=== PATIENT | female | born 1965 | race Caucasian/White ===

== ENCOUNTER 2019-01-03 06:17 | Emergency (ER) | payer BC ==
--- NOTE | 2019-01-03 07:14 | EDM.PDOC ---
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 This has caused anemia in the past and she is concerned about that. She is having some cramping but no fever, chills, no chance of . No significant dizziness or shortness of breath. Onset: Gradual Duration: Day(s): (Bleeding started 1 day ago) Associated Symptoms: Denies: Confusion, Chest Pain, Cough, Diaphoresis, Fever/ Chills, Headaches, Loss of Appetite, Nausea/Vomiting, Shortness of Breath Uterine Pain Score (Numeric/FACES): 5 - Related Data Allergies Allergy/AdvReac Type Severity Reaction Status Date / Time Sulfa (Sulfonamide Allergy Hives Verified 01/03/19 06:35 Antibiotics) Home Meds: Home Meds *Cq10 1 tab PO DAILY 01/03/19 [History] Cholecalciferol (Vitamin D3) [Vitamin D3] 3,000 units PO DAILY 01/03/19 [History ] Multivitamin with Iron [Multivitamins with Iron] 1 tab PO DAILY 01/03/19 [ History] Past Medical History HEENT History: Reports: Impaired Vision Cardiovascular History: Reports: High Cholesterol Gastrointestinal History: Reports: Colon Polyp, Other (See Below) Other Gastrointestinal History: GI tear from vomitting 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 History: Reports: Dysfunctional Uterine Bleeding, Fibroids Hematologic History: Reports: Anemia, Iron Deficiency - Infectious Disease History Infectious Disease History: Reports: Chicken Pox, Shingles - Past Surgical History GI Surgical History: Reports: Colonoscopy, EGD, Esophageal Dilatation, Polypectomy Social & Family History - Tobacco Use Smoking Status *Q: Never Smoker - Caffeine Use Caffeine Use: Reports: Coffee - Recreational Drug Use Recreational Drug Use: No ED ROS GENERAL - Review of Systems Review Of Systems: See Below Constitutional: Denies: Fever, Chills HEENT: Reports: No Symptoms Respiratory: Reports: No Symptoms Cardiovascular: Reports: No Symptoms. Denies: Palpitations GI/Abdominal: Reports: Abdominal Pain. Denies: Nausea, Vomiting : Denies: Dysuria, Flank Pain Skin: Reports: No Symptoms ED EXAM, GENERAL - Physical Exam Exam: See Below Exam Limited By: No Limitations General Appearance: Alert, No Apparent Distress Eye Exam: Bilateral Eye: Other (Well-hydrated, conjunctiva normal) Head: Atraumatic Respiratory/Chest: No Respiratory Distress Cardiovascular: Regular Rate, Rhythm GI/Abdominal: Soft, Other (some discomfort with palpation across the lower abdomen, no distention) Course - Vital Signs Last Recorded V/S: Last Vital Signs Temp 96.5 F 01/03/19 06:43 Pulse 86 01/03/19 06:43 Resp 18 01/03/19 06:43 BP 142/101 H 01/03/19 06:43 Pulse Ox 95 01/03/19 06:43 - Orders/Labs/Meds Labs: Laboratory Tests 01/03/19 Range/Units 07:11 WBC 10.0 (4.5-11.0) K/uL RBC 5.18 (3.30-5.50) M/uL Hgb 15.0 (12.0-15.0) g/dL Hct 44.1 (36.0-48.0) % MCV 85 (80-98) fL MCH 29 (27-31) pg MCHC 34 (32-36) % Plt Count 287 (150-400) K/uL Neut % (Auto) 68 H (36-66) % Lymph % (Auto) 20 L (24-44) % Hunt % (Auto) 7 H (2-6) % Eos % (Auto) 4 (2-4) % Baso % (Auto) 1 (0-1) % - Re-Assessments/Exams Free Text/Narrative Re-Assessment/Exam: 01/03/19 07:13 Reassured the patient with a normal blood pressure and pulse and good skin color anemia is not likely at this point. A CBC was obtained for baseline. 01/03/19 07:33 Patient remained stable and hemoglobin returned 15.0. A copy of the lab was given to the patient and she can recheck when she gets home, or return sooner if bleeding persists over the next 24-48 hours if she becomes more symptomatic. Departure - Departure Time of Disposition: 07:50 Disposition: Home, Self-Care 01 Clinical Impression: Anovulatory (dysfunctional uterine) bleeding - Discharge Information Instructions: Dysmenorrhea, [id number] Referrals: PCP,None [Primary Care Provider] - Forms: ED Department Discharge Care Plan Goals: Recheck when home, or return anytime if concerns of heavy bleeding causing symptoms or concerns.
== END 2019-01-03 07:50 | disposition home or self-care (01) ==
LOC: JP.ED 06:17
DX: N93.8 Other specified abnormal uterine and vaginal bleeding (principal)
CPT/HCPCS: 36415; 85025; 99284